=== PATIENT | female | born 1955 | race Caucasian/White ===

== ENCOUNTER 2017-12-03 05:46 | Day surgery (SDC) | payer BC ==
--- NOTE | 2017-12-02 22:05 | GHP ---
[f rep st] PREOP HISTORY AND PHYSICAL CURRENT COMPLAINT: Right knee pain. HISTORY OF PRESENT ILLNESS: The patient is a 62-year-old female with a several- month history of right knee pain worsen with use and with time. MRIs revealed osteoarthritis with complex medial and lateral meniscal tear. She wishes to have surgery in order to resolve the problem. CURRENT ALLERGIES: Include penicillamine and bromsulphalein. CURRENT MEDICATIONS: Include levothyroxine, lisinopril, and [employer]. PRIOR MEDICAL PROBLEMS: Include arthritis, thyroid problems. PRIOR SURGERIES: Include neuromas of the feet, biceps reattachment, rotator cuff surgery, and knee arthroscopy. She is a current same-day smoker, smoking 1 /4 pack per day, and she is a social drinker. PHYSICAL EXAM: EYES: Pupils equal, round, reactive to light. CHEST: Clear to auscultation. HEART: Regular rate and rhythm. ABDOMEN: Soft and nontender. EXTREMITIES: Physical exam of the knee reveals mild knee effusion. Good range of motion. Tenderness at the osteochondral junction of the medial compartment, as well as the lateral joint line and lateral compartment. MRIs revealed osteoarthritic changes in all 3 compartments, as well as complex medial and lateral meniscal tears. ASSESSMENT/PLAN: Patient is status post right knee osteoarthritis with medial and lateral meniscal tears. Plan is to take her to the operating room to undergo a right knee arthroscopy. /[id number]/MODL MTDD
[2017-12-03] MEDS ORDERED: ceFAZolin 2 GM/DEXTROSE 100 ML IV ONE (06:06)
[2017-12-03] MEDS ORDERED: VANCOMYCIN PHARMACY TO DOSE MISC ONE (06:06)
[2017-12-03] MEDS ORDERED: LIDOCAINE 1% 2 ML INJ ID PRN (06:07)
[2017-12-03] MEDS ORDERED: LR 1,000 ML IV ONE (06:07)
[2017-12-03] MEDS ORDERED: VANCOMYCIN 1 GM in NS 250 ML IV ONE (06:30)
[2017-12-03] MEDS ORDERED: MIDAZOLAM 2 MG/2 ML VIAL IVP ONE (06:45)
--- NOTE | 2017-12-03 06:45 | PDANEPAE ---
ANE History of Present Illness OA here for knee arthroscopy ANE Past Medical History - Cardiovascular History Hx Hypertension: Yes Hx Arrhythmias: No Hx Chest Pain: No Hx Coronary Artery / Peripheral Vascular Disease: No Hx CHF / Valvular Disease: No Hx Palpitations: No - Pulmonary History Hx COPD: No Hx Asthma/Reactive Airway Disease: No Hx Recent Upper Respiratory Infection: No Hx Oxygen in Use at Home: No Hx Sleep Apnea: No Sleep Apnea Screening Result - Last Documented: Negative - Neurologic History Hx Cerebrovascular Accident: No Hx Seizures: No Hx Dementia: No - Endocrine History Hx Diabetes: No Endocrine History Comment: GRAVE'S DISEASE -HYPOTHROID - Renal History Hx Renal Disorders: No - Liver History Hx Hepatic Disorders: No - Neurological & Psychiatric Hx Hx Neurological and Psychiatric Disorders: No - Cancer History Hx Cancer: Yes Cancer History Comment: CERVICAL CA AGE 18-NO PROBLEMS - Congenital Disorder History Hx Congenital Disorders: No - GI History Hx Gastrointestinal Disorders: No - Other Health History Other Health History: OA R KNEE/ R KNEE MENISCAL TEAR - Chronic Pain History Chronic Pain: No - Surgical History Prior Surgeries: R ROTATOR CUFF. R BICEP RE-ATTACHMENT. BILAT FT NEUROMAS. L KNEE SCOPE. L KNEE ACL ANE Review of Systems Review of Systems: - Exercise capacity METS (RN): 4 METS ANE Patient History - Allergies Allergies/Adverse Reactions: clindamycin Allergy (Verified 11/12/17 12:53) Other-Enter Comments Penicillins Allergy (Verified 11/12/17 12:53) Hives Sulfa (Sulfonamide Antibiotics) Allergy (Verified 11/12/17 12:53) Hives RAW SHELLFISH Allergy (Uncoded 11/12/17 12:54) - Home Medications Home Medications: Advil 11/12/17 [Last Taken 11/03/17] Levothyroxine Sodium 11/12/17 [Last Taken 12/03/17] Lisinopril 11/12/17 [Last Taken 12/03/17] - NPO status NPO Status: no food or drink >8 hours NPO Since - Liquids (Date): 12/02/17 NPO Since - Liquids (Time): 22:30 NPO Since - Solids (Date): 12/02/17 NPO Since - Solids (Time): 20:30 - Anes Hx Anes Hx: no prior problems - Smoking Hx Smoking Status: Light smoker - Alcohol Use Alcohol Use: Occasionally - Family Anes Hx Family Anes Hx: none ANE Labs/Vital Signs - Vital Signs Blood Pressure: 127/75 Heart Rate: 59 Respiratory Rate: 13 O2 Sat (%): 99 Height: 175.26 cm Weight: 65.771 kg ANE Physical Exam - Airway Neck exam: FROM Mallampati Score: Class 1 Mouth exam: normal dental/mouth exam - Pulmonary Pulmonary: no respiratory distress, clear to auscultation - Cardiovascular Cardiovascular: regular rate and rhythym, no murmur, rub, or gallop - ASA Status ASA Status: II ANE Anesthesia Plan Anesthesia Plan: GA w LMA
[2017-12-03] MEDS ORDERED: fentaNYL 100 MCG/2 ML INJ ONE (06:51)
[2017-12-03] MEDS ORDERED: PROPOFOL 200 MG/20 ML VIAL ONE (06:51)
[2017-12-03] MEDS ORDERED: LIDOCAINE 2% 100 MG/5 ML SYR ONE (06:53)
[2017-12-03] MEDS ORDERED: BUPIVACAINE/EPI 0.5% 30 ML SDV ONE (06:53)
[2017-12-03] MEDS ORDERED: EPINEPHrine 1 MG/ML INJ ONE (06:53)
--- NOTE | 2017-12-03 07:16 | PDHPUP ---
History & Physical Update H&P update statement: This history and physical update is based on an assessment of the patient which was completed after admission or registration (within 24 hours), but prior to the surgery/procedure. H&P update: H&P reviewed & patient examined, no change in patient's condition since H&P completed
[2017-12-03] MEDS ORDERED: PHENYLEPHRINE HCL 100 MCG/ML SYR ONE (07:29)
[2017-12-03] MEDS ORDERED: ePHEDrine SULFATE 25 MG/5 ML SYR ONE (07:31)
[2017-12-03] MEDS ORDERED: KETOROLAC 15 MG/1 ML SDV IVP ONE (08:18)
[2017-12-03] MEDS ORDERED: TEMAZEPAM 15 MG CAP PO PRN (08:18)
[2017-12-03] MEDS ORDERED: LACTULOSE 20 GM/30 ML UDCUP PO PRN (08:18)
[2017-12-03] MEDS ORDERED: oxyCODONE IR 5 MG TAB PO PRN ×2 (08:18→08:20)
[2017-12-03] MEDS ORDERED: ONDANSETRON 4 MG/2 ML VIAL IVP PRN ×2 (08:18→08:20)
[2017-12-03] MEDS ORDERED: PROMETHAZINE HCL 25 MG SUPPR PR PRN (08:18)
[2017-12-03] MEDS ORDERED: CYCLOBENZAPRINE 10 MG TAB PO PRN (08:18)
[2017-12-03] MEDS ORDERED: PROMETHAZINE HCL 25 MG/ML INJ IVP PRN ×2 (08:18→08:20)
[2017-12-03] MEDS ORDERED: ONDANSETRON DISINTEGRATING 4 MG TAB PO PRN (08:18)
[2017-12-03] MEDS ORDERED: MAGNESIUM HYDROXIDE 30 ML UDCUP PO PRN (08:18)
[2017-12-03] MEDS ORDERED: diphenhydrAMINE 25 MG CAP PO PRN (08:18)
[2017-12-03] MEDS ORDERED: POLYETHYLENE GLYCOL 3350 17 GM PKT PO PRN (08:18)
[2017-12-03] MEDS ORDERED: BISACODYL 10 MG SUPP PR PRN (08:18)
[2017-12-03] MEDS ORDERED: DIPHENOXYLATE/ATROPINE LOMOTIL 1 TAB PO PRN (08:18)
[2017-12-03] MEDS ORDERED: METOCLOPRAMIDE 10 MG/2 ML VIAL IVP PRN (08:18)
--- NOTE | 2017-12-03 08:18 | POSTOPPROG ---
Post Op Note Date of Operation: 12/03/17 Surgeon: Rabia Harrington Anesthesia: LMA Pre-op Diagnosis: r mmt/lmt/oa Procedure: r knee scope with partial med/lat menisectomy with chondroplasty Inf/Abcess present in the surg proc area at time of surgery?: No Depth: Deep Incisional (Fascial) EBL: 50-100
[2017-12-03] MEDS ORDERED: fentaNYL 100 MCG/2 ML INJ IVP PRN (08:20)
[2017-12-03] MEDS ORDERED: HYDROCODONE/APAP 5/325 TAB PO PRN (08:20)
[2017-12-03] MEDS ORDERED: NALOXONE HCL 0.4 MG/ML INJ IVP PRN (08:20)
[2017-12-03] MEDS ORDERED: ACETAMINOPHEN 500 MG TAB PO PRN (08:20)
--- NOTE | 2017-12-03 08:20 | POSTANESTH ---
Post Anesthetic Evaluation Cardiovascular Status: Normal, Stable, Similar to Pre-Op Cond Respiratory Status: Normal, Stable, Similar to Pre-op Cond. Level of Consciousness/Mental Status: Can Participate in Eval, Alert and Oriented Pain Control: Adequate, Prn Tx Ordered Nausea/Vomiting Control: Adequate, Prn Tx Ordered Complications Possibly Related to Anesthesia: None Noted
[2017-12-03] MEDS ORDERED: LR 1,000 ML IV SCH (08:30)
[2017-12-03] MEDS ORDERED: SENNOSIDES/DOCUSATE SODIUM TAB PO SCH (09:00)
--- NOTE | 2017-12-03 09:08 | GOP ---
[f rep st] OPERATIVE REPORT DATE OF OPERATION: 12/03/2017 SURGEON: Raiba Harrington MD ANESTHESIA: With LMA. PREOPERATIVE DIAGNOSIS: Right medial and lateral meniscal tear with osteoarthritis. POSTOPERATIVE DIAGNOSIS: Right medial and lateral meniscal tear with osteoarthritis with grade 3 cho ndral changes to the patellofemoral compartment, the lateral compartment, and the majority of the med ial compartment with a small area of grade 4 change of the very posterior portion of the medial myles rtment. PROCEDURE PERFORMED: Right knee arthroscopy with partial medial, partial lateral meniscectomy with c hondroplasty of all 3 compartments. FINDINGS: INDICATIONS: A 62-year-old female with a several-month history of right knee pain worsening with use over time particularly with twisting or deep flexion. MRI revealed tearing of the medial and latera l meniscus along with some osteoarthritic changes. She wishes to have surgery in order to resolve th e problem. DESCRIPTION OF PROCEDURE: The patient brought to the operating room after the right side had been id entified as the correct side by the patient, nurse, and physician. Once in the operating room, she w as placed under general anesthesia using LMA. Once asleep, tourniquet was placed around the upper po rtion of the right thigh and both legs placed in appropriate leg prieto. The right lower extremity w as then sterilely prepped and draped in the usual fashion using GSI solution. Once prepped and drape d, the limb was exsanguinated, tourniquet inflated to 250 mmHg. An incision was made in the superome dial portion of the knee with an outflow trocar and introduced without difficulty. A 2nd incision wa s made lateral to the patellar tendon between the inferior pole of the patella and tibial plateau wit h the camera inserted without difficulty. Inspection of the joint revealed no loose bodies in the worrell prapatellar pouch or the medial lateral gutter, although there was a great deal of synovium within th e patellofemoral compartment and the medial lateral gutters. There were noted to be extensive grade 3 chondral changes to the patella, less to the trochlea. Further inspection revealed a chronic tear of the ACL with no ACL remaining within the intercondylar notch. Inspection of the medial compartmen t revealed tearing of the posterior horn and body of the medial meniscus as well as grade 3 chondral changes through most of the weightbearing portion of the medial compartment and a small area of grade 4 chondral change of the posterior portion of the medial compartment on the tibia and especially the lateral part revealed tearing of the anterior body and posterior horn of the medial meniscus with a flap tear noted of the posterior horn of the medial meniscus. There were grade 3 chondral changes th roughout the lateral compartment. Therefore, a third incision was made medial to the patellar tendon between the inferior pole of the p atella and tibial plateau and alternating with using a straight biter and a 4.5 mm smooth shaver was used to debride and debulk tears of the medial and lateral meniscus, remove the loose fragments of ca rtilage from all 3 compartments. Synovium from the medial and lateral gutters as well as suprapatell ar pouch were removed. Once completed all instruments were removed from the knee with 30 cc of Aman ine infused in the knee joint. 3 portal sites were closed using 3-0 nylon suture in a [id number] type stitch. The wounds were dressed with Xeroform, 4 x 4, wrapped in Webril. Tourniquet was defl ated at 27 minutes. Leg was completely undraped in the operating room, tourniquet removed from the t high, and an Mohamud wrap placed around the knee. Left leg was taken out of its leg prieto. She was abbey samir supine. She was woken up, extubated, transferred onto a stretcher, and sent to recovery room in good condition. TOURNIQUET TIME: 27 minutes. /[id number]/MODL
[2017-12-03 09:48] VITALS: BP 125/71
[2017-12-03] MEDS ORDERED: ACETAMINOPHEN 325 MG TAB PO SCH (12:00)
[2017-12-03] MEDS ORDERED: ASPIRIN 81 MG CHEWABLE TAB PO SCH (21:00)
[2017-12-03] MEDS ORDERED: FAMOTIDINE 20 MG TAB PO SCH (21:00)
== END 2017-12-03 10:02 | disposition home or self-care (01) ==
LOC: FSGY 05:46
PROVIDERS: ATTEND Orthopaedic Surgery
PROC: 0SBC4ZZ Excision of Right Knee Joint, Percutaneous Endoscopic Approach (ICD-10-PCS; principal; 2017-12-03 07:15)
DX: M23.221 Derangement of posterior horn of medial meniscus due to old tear or injury, right knee (principal); M23.261 Derangement of other lateral meniscus due to old tear or injury, right knee; M17.11 Unilateral primary osteoarthritis, right knee; F17.210 Nicotine dependence, cigarettes, uncomplicated; I10 Essential (primary) hypertension; E03.9 Hypothyroidism, unspecified; Z88.0 Allergy status to penicillin
CPT/HCPCS: J0171; J2001; J2250; J2370; J2704; J3010; J3370